=== PATIENT | female | born 1985 | race Caucasian/White ===

== ENCOUNTER 2016-10-20 21:08 | Emergency (ER) | payer MEDICAID, OTHER ==
[~2016-10-20] VITALS: Ht 167.6 cm; Wt 59.1 kg
[2016-10-20 21:15] VITALS: BP 164/85; PULSE 105; RESP 22; O2SAT 99
--- NOTE | 2016-10-20 21:25 | ED.REPORT ---
HPI-Psychiatric Illness Date of Service October 20, 2016 ED Provider: Dr. Louis Isabel MD Patient is a 31 year old female with a history of depression and previous suicide attempt who presents to the ED following an intentional Timberon ( extended release) overdose that occurred within the past hour. Patient reportedly took "57 pills" of the Timberon. In addition to the Timberon, patient admits to taking 12.5 mg of Xanax, Abilify and EtOH. She has been previously admitted for a similar intentional overdose. Patient is accompanied to the ED by her boyfriend. She admits that she does not consistently take her medications. Her current psychiatrist prescribed the medications. Nursing Notes Stated Complaint: OVERDOSE ON LITHIUM Chief Complaint: Psychiatric Complaint Nursing Notes Reviewed: Yes Allergies: Coded Allergies: No Known Allergies (Unverified , 10/20/16) General Time Seen by MD: 21:25 Chief Complaint Drug overdose-intentional Hx Obtained From: Patient Arrived By: Walk-in Onset Occurred: 1 - 4 hours ago Context of Onset: EtOH use Symptom Duration: Since onset Progression Since Onset: Unchanged Associated with: Reports: Depression Pertinent Negative: Pt denies other symptoms Recent Healthcare: No recent doctor visit, No recent hospitalization Risk-Psychiatric Illness Suicide Risk Stratification Suicide Risk Factors - Adult: : Previous attempt: Prior psych admission RF Statements: Risk factors reviewed Past Medical History Past Medical History Depression Past Surgical History None reported. Smoking History Unknown if Ever Smoker Social History Other Social History: Good social support, Local resident Ambulatory Status Independent Review of Systems Intentional overdose Constitutional: Denies: Chills, Fever Cardiovascular: Denies: Chest pain GI: Denies: Abdominal pain Psychiatric: Reports: Depression Complete sys rev & neg: except as marked. Physical Exam Initial Vital Signs Vital Signs (First) Date Time Temp Pulse Resp B/P Pulse Ox O2 Delivery O2 Flow Rate FiO2 10/20/16 21:15 36.6 105 22 164/85 99 Room Air Initial VS: Reviewed Head / Eyes: Atraumatic, Normocephalic, PERRL Neck: Supple, Non-tender, Full range of motion Extremities: Vascular intact, Neuro intact, No swelling, No tenderness Skin: Warm, Dry, No cyanosis General/Constitutional: Awake, Alert Alertness: Positive: Responds to verb stimuli Neurologic: Oriented X3, Speech NL, No motor deficits, No sensory deficits, CN II - XII intact Mental Status: Positive: Somnolent (Mildly) Abnormal Mood/Affect: Positive: Flat affect Abnormal Thinking / Perception: Positive: Suicidal, with plan (with attempt ) Respiratory / Chest: Atraumatic, Breath sounds NL, Breath sounds = bilat, No respiratory distress Cardiovascular: Regular rhythm, Heart sounds NL Heart Rate / Rhythm: Positive: Tachycardia CARDIO: Hypertensive Abdomen: Atraumatic, Soft Interpretation & Diagnostics Lab Results Interpretation Result Diagram: 10/20/16212910/20/162129 Test 10/20/16 21:30 10/20/16 22:07 White Blood Count 6.1th/mm3 (3.8-10.1) Red Blood Count 4.01mil/mm3 (3.90-5.20) Hemoglobin 12.2g/dL (12.0-15.6) Hematocrit 36.7% (35.0-46.0) Mean Corpuscular Volume 91.5fL (81-100) Mean Corpuscular Hemoglobin 30.4pg (27.0-35.0) Mean Corpuscular Hemoglobin Concent 33.2% (32.0-37.0) Red Cell Distribution Width 13.2% (12.3-15.4) Platelet Count 184bil/L (150-400) Sodium Level 140mEq/L (134-144) Potassium Level 3.4mEq/L (3.5-5.2) Chloride Level 103mEq/L (97-108) Carbon Dioxide Level 20mmol/L (18-29) Blood Urea Nitrogen 20mg/dL (6-20) Creatinine 0.79mg/dL (0.57-1.00) Estimat Glomerular Filtration Rate 120mL/min (>59) Glucose Level 74mg/dL (60-99) Calcium Level 9.4mg/dL (8.5-10.1) Total Bilirubin 0.2mg/dL (0.0-1.2) Aspartate Amino Transf (AST/SGOT) 24U/L (0-50) Alanine Aminotransferase (ALT/SGPT) 15U/L (0-32) Alkaline Phosphatase 56U/L (25-150) Total Protein 7.5g/dL (6.4-8.4) Albumin 4.3g/dL (3.4-5.0) Thyroid Stimulating Hormone (TSH) 0.017uIU/mL (0.450-4.500) Human Chorionic Gonadotropin, Qual 0.500 (Negative) Salicylates Level < 3.0ug/mL (30-250) Acetaminophen Level < 15.0ug/mL Rx (10-25) Timberon Level 0.1mEq/L (0.5-1.5) Alcohols 115mg/dL (0-10) Hold Urine Received (Received) Lab Results Interpretation: BLOOD GAS pH: 7.37 pCO2 37 pO2 196 cHCO3 21 cBase -3.3 ECG Interpretation ECG Interpretation: Normal Sinus Rhythm Rate 96 QTC = 473 Normal axis Normal intervals Time: 20:28 Interpreted by: ED physician Re-Eval/Medical Decision Med Decision/Clinical Course Reported multidrug ingestion including lithium, Xanax, and alcohol. Her initial lithium level is very low. She is an awake and alert, has had some brief episodes of mild drowsiness and a single episode of vomiting. We will continue to monitor her very closely second lithium level is pending. Care transferred to Dr. Rogel. Re-Evaluation/Progress #1: Time of Eval: 21:50 Re-Evaluation/Progress Note: Patient is informed of the current treatment plan and possibility of dialysis. Re-Evaluation/Progress #2: Time of Eval: 23:01 Patient Status: Condition improved Re-Evaluation/Progress Note: Pt is awake and alert Hemodynamically stable Informed of the need for a second lithium Will finish golytely Re-Evaluation/Progress #3: Time of Eval: 23:48 Patient Status: Condition improved Re-Evaluation/Progress Note: Pt is awake and conversing. Initial Timberon level = .1 L Re-Evaluation/Progress #4: Time of Eval: 00:16 Patient Status: Condition improved Re-Evaluation/Progress Note: Pt has one episode of vomiting. She is currently sitting on the commode awake and alert. 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, Agrees with plan Note: Poison Control - Dante Will need to trend levels every 2 hours May require dialysis Counseled Regarding: Diagnosis, Lab results Discharge & Departure Shift Change Sign-Out Patient Care Transferred: Yes Discussed Complaint(s): Yes Laboratory Evaluation: Lab evaluation discussed Impression: Primary Impression: Suicide attempt Additional Impressions: Timberon overdose Encounter type: initial encounter Injury intent: intentional self-harm Qualified Code: T56.892A - Toxic effect of other metals, intentional self-harm , initial encounter Benzodiazepine overdose Encounter type: initial encounter Injury intent: intentional self-harm Qualified Code: T42.4X2A - Poisoning by benzodiazepines, intentional self-harm , initial encounter Disposition: ADMITTED TO HOSPITAL Discharge Condition All VS Reviewed: Yes Condition: Improved Care Transferred to: Dr. Rogel Care Transferred at: 00:00 Crit Care Except Billable Proc Time Spent: 75-104 minutes Services Performed: Patient management by me, Time spent at bedside, Reviewing test results, Reviewing imaging, Discussing patient care, Documentation in record, Time with fam/surrogate Critical Care Notes: See MDM Scribe Attestation Portions of this note were transcribed by Stephanie Gordon. I, Dr. Isabel personally performed the history, physical exam and medical decision-making; I reviewed and confirmed the accuracy of the information in the transcribed note. Signed by: Esperanza Park, 10/21/16 0020. Louis Isabel DO October 20, 2016 21:25 STEPHANIE GORDON October 20, 2016 21:34
[2016-10-20] MEDS ORDERED: 0.9% Sodium Chloride 1,000 ML IV ONE (21:30)
[2016-10-20] MEDS ORDERED: 0.9% Sodium Chloride 1,000 ML IV SCH ×2 (21:30)
[2016-10-20 21:45] LABS: Mean Corpuscular Hemoglobin 30.4 pg (27.0-35.0); Mean Corpuscular Volume 91.5 fL (81-100)
[2016-10-20 22:00] VITALS: BP 133/64; PULSE 109; RESP 19; O2SAT 100
[2016-10-20] MEDS ORDERED: PEG/Electrolytes 4,000 mL Solution PO ONE (22:05)
[2016-10-20 23:00] VITALS: BP 128/64; PULSE 88; RESP 18; O2SAT 98
[2016-10-21] VITALS: BP 136/72; PULSE 92; RESP 18; O2SAT 92
[2016-10-21] MEDS ORDERED: Ondansetron 8 mg ODT Tablet PO ONE (00:10)
[2016-10-21] MEDS ORDERED: Ondansetron 2 mg/mL 2 mL Inj IVPUSH PRN (00:15)
[2016-10-21] MEDS ORDERED: Ondansetron 2 mg/mL 2 mL Inj IVPUSH ONE (00:15)
[2016-10-21 01:00] VITALS: BP 123/68; PULSE 88; RESP 18; O2SAT 98
[2016-10-21 02:00] VITALS: BP 126/72; PULSE 82; RESP 18; O2SAT 97
[2016-10-21 03:53] VITALS: BP 121/68; PULSE 82; RESP 18; O2SAT 98
== END 2016-10-21 03:40 ==
LOC: SED 21:08
DX: T56.892A Toxic effect of other metals, intentional self-harm, initial encounter (principal); T42.4X2A Poisoning by benzodiazepines, intentional self-harm, initial encounter; R45.851 Suicidal ideations; F10.129 Alcohol abuse with intoxication, unspecified; X58.XXXA Exposure to other specified factors, initial encounter; Y93.9 Activity, unspecified; Y92.9 Unspecified place or not applicable; Y99.9 Unspecified external cause status
CPT/HCPCS: 36415; 80048; 80053; 80178; 81002; 81025; 82375; 82803; 84443; 84703; 85027; 93005; 96374; 96376; 99291; 99292; G0480; J2405; J7030

== ENCOUNTER 2016-11-27 19:07 | Emergency (ER) | payer OTHER ==
[~2016-11-27] VITALS: Ht 167.6 cm; Wt 62.7 kg
[2016-11-27 19:30] VITALS: BP 149/79; PULSE 114; RESP 25; O2SAT 100
[2016-11-27 20:05] LABS: BASOPHILS % (AUTO) 0.3 % (0-3); EOSINOPHILS % (AUTO) 1.3 % (0-5); Mean Corpuscular Hemoglobin 30.3 pg (27.0-35.0); Mean Corpuscular Volume 91.3 fL (81-100); Platelet Count 209 bil/L (150-400)
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
[2016-11-27] MEDS ORDERED: PREN1TAB87 PO (20:33)
[2016-11-27 21:49] VITALS: BP 148/76; PULSE 93; RESP 16; O2SAT 95
== END 2016-11-27 20:40 ==
LOC: SED 19:07
DX: O26.891 Other specified pregnancy related conditions, first trimester (principal); R45.851 Suicidal ideations; F43.0 Acute stress reaction; S50.812A Abrasion of left forearm, initial encounter; F31.9 Bipolar disorder, unspecified; E03.9 Hypothyroidism, unspecified; W26.0XXA Contact with knife, initial encounter; Y93.89 Activity, other specified; Y92.009 Unspecified place in unspecified non-institutional (private) residence as the place of occurrence of the external cause; Y99.8 Other external cause status